=== PATIENT | male | born 1980 | race Caucasian/White ===

== ENCOUNTER 2023-07-28 17:09 | Emergency (ER) | payer MEDICARE ==
[2023-07-28 17:37] VITALS: TEMP 98.6
[2023-07-28] MEDS ORDERED: OXYCODONE-ACETAMINOPHEN 10-325 PO STA (17:42)
[2023-07-28] MEDS ORDERED: MOTRIN 600 MG PO ONE (17:42)
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
[2023-07-28] MEDS ORDERED: OXYCODONE-ACETAMINOPHEN 10-325 ONE (17:56)
[2023-07-28] MEDS ORDERED: MOTRIN 600 MG ONE (17:56)
[2023-07-28 18:13] VITALS: BP 158/91; PULSE 64; RESP 20
[2023-07-28 18:34] VITALS: O2SAT 95
--- NOTE | 2023-07-28 20:08 | XRAY ---
Indication: Pain following fall. Comparison: None 2 view right forearm obtained. No bony, articular, or soft tissue abnormalities.
== END 2023-07-28 18:49 | disposition home or self-care (01) ==
LOC: ED 17:09
DX: S50.12XA Contusion of left forearm, initial encounter (principal); W19.XXXA Unspecified fall, initial encounter; I10 Essential (primary) hypertension; Z79.899 Other long term (current) drug therapy; Z28.310 Unvaccinated for COVID-19
CPT/HCPCS: 73090; 99283; A9270-GY